=== PATIENT | male | born 1945 | race African-American/Black ===

== ENCOUNTER 2020-01-27 11:58 | Inpatient (IN) | payer MEDICARE, OTHER ==
[~2020-01-27] VITALS: Ht 172.7 cm; Wt 61.1 kg
[2020-01-27] MEDS ORDERED: SODIUM CHLORIDE 0.9% 1,000 ML IVB ONE (13:35)
[2020-01-27] MEDS ORDERED: ONDANSETRON HCL 4 MG/2 ML VIAL IV ONE (14:00)
[2020-01-27] MEDS ORDERED: MORPHINE SULF INJ 2 MG/ML SYRINGE 1ML IV ONE (14:00)
[2020-01-27 14:14] LABS: Basophils # (auto) 0 10 ^3/uL (0-0.2); Basophils % (auto) 0.3 % (0.0-2.0); Eosinophils # (auto) 0 10 ^3/uL (0-0.8); Hematocrit 41.9 % (41.0-53.0); Hemoglobin 14.5 g/dL (13.5-17.5); Lymphocytes # (auto) 0.5 10 ^3/uL (0.4-5.4); Lymphocytes % (auto) 4.8 % (10.0-50.0); Mean Corpuscular Hemoglobin 30.4 pg (28.0-32.0); Mean Corpuscular Hgb Conc. 34.5 g/dL (32.0-36.0); Mean Corpuscular Volume 88.2 fL (80.0-100.0); Monocytes # (auto) 0.4 10 ^3/uL (0-1.3); Monocytes % (auto) 4.7 % (0.0-12.0); Neutrophils # (auto) 8.6 10 ^3/uL (1.6-8.6); Neutrophils % (auto) 90.2 % (37.0-80.0); Nucleated Red Blood Cells % 0.1 %; Platelet Count (auto) 323 10^3/uL (140-450); Red Blood Cells 4.75 10^6/uL (4.5-5.90); White Blood Cell 9.5 10^3/uL (4.4-10.8)
[2020-01-27 14:32] LABS: INR 1.02 (0.9-1.15); Partial Thromboplastin Time 25.6 sec (23.64-32.05)
[2020-01-27] MEDS ORDERED: ACETAMINOPHEN 500 MG TAB PO PRN (16:30)
[2020-01-27] MEDS ORDERED: DEXTROSE (50%) 50ML SYRG IV PRN (16:30)
[2020-01-27] MEDS ORDERED: LACTULOSE 20Gm/30ML SOLN PO PRN (16:30)
[2020-01-27] MEDS ORDERED: PROMETHAZINE HCL 25 MG/ML 1ML IV PRN (16:30)
[2020-01-27] MEDS: MORPHINE SULF INJ 2 MG/ML SYRINGE 1ML IV PRN ×2 (18:58→22:50)
[2020-01-27] MEDS: SODIUM CHLORIDE 0.9% 1,000 ML IV SCH ×2 (19:00→23:32)
[2020-01-27] MEDS: ACCU-CHEK COMFORT CURVE STRIP VI SCH ×3 (19:02→23:00)
[2020-01-27] MEDS: cloNIDine HCL 0.1 MG TAB PO PRN (20:38)
[2020-01-27 22:30] VITALS: BP 143/99
--- NOTE | 2020-01-27 22:30 | NUR ---
MS admit from ER BIB BLOOD admitted to tele/MS after SBAR received. Patient oriented to WYATT VALLEJO RN primary RN, unit, room, bed, and unit policies regarding patient care and visiting hours. Patient weighed by bedscale and encouraged to call if they need something. All questions and concerns addressed, patient verbalized understanding. Note:
[2020-01-27 22:38] LABS: Albumin 3.4 g/dL (3.4-5.0); BUN/Creatinine Ratio 10.8; Calcium 8.3 mg/dL (8.5-10.1); Potassium 4.5 mmol/L (3.5-5.1)
[2020-01-27 22:41] LABS: Bilirubin, Total 1.4 mg/dL (0.2-1.0); Total Protein 6.5 g/dL (6.4-8.2)
[2020-01-27 23:16] VITALS: BP 143/99
[2020-01-28] MEDS: MORPHINE SULF INJ 2 MG/ML SYRINGE 1ML IV PRN ×4 (04:01→17:34)
[2020-01-28 05:00] VITALS: BP 162/91
[2020-01-28] MEDS: cloNIDine HCL 0.1 MG TAB PO PRN ×2 (05:56→16:25)
--- NOTE | 2020-01-28 08:30 | NUR ---
Opening Shift Note Assumed care of patient, awake, alert, and oriented. No S/S of distress/SOB. Patient c/o pain to right hip 04/13, will medicate per MD orders. Bed in lowest/locked position, bed rails up x2, call light within reach. Instructed on POC and to call for assist PRN. Will continue to monitor for changes Q1hr and PRN.
[2020-01-28 08:41] VITALS: BP 127/71
--- NOTE | 2020-01-28 10:20 | NUR ---
LR INFORMED PATIENT OF MD REQUEST FOR LR CATHETER PLACEMENT. PATIENT STATED "I DON'T WANT THAT." EDUCATED PATIENT, PATIENT VERBALIZED UNDERSTANDING. WILL CONTINUE TO MONITOR
--- NOTE | 2020-01-28 11:50 | NUR ---
MD ROUNDS DR Hima LEVINE AT BEDSIDE, DISCUSSING POC WITH PATIENT. NEW ORDERS RECEIVED/WILL CONTINUE TO MONITOR. WILL CONTINUE TO MONITOR
[2020-01-28] MEDS ORDERED: DEXTROSE (50%) 50ML SYRG IV PRN (12:15)
[2020-01-28] MEDS: ACCU-CHEK COMFORT CURVE STRIP VI SCH ×3 (12:19→20:56)
[2020-01-28] MEDS: SODIUM CHLORIDE 0.9% 1,000 ML IV SCH ×2 (12:20→18:20)
[2020-01-28 13:00] VITALS: BP 131/67
[2020-01-28] MEDS: LOSARTAN POTASSIUM 25 MG TAB PO SCH (13:22)
--- NOTE | 2020-01-28 15:22 | NUR ---
ROUNDS PATIENT ASLEEP, EVEN UNLABORED RESPIRATIONS. NO S/S OF DISTRESS, SOB, OR PAIN. WILL CONTINUE TO MONITOR
--- NOTE | 2020-01-28 15:45 | NUR ---
Two attempts made for PT eval today. During initial attempt, pt reported too much pain so I returned when pt was pre-medicated. He was initially agreeable to attempt sitting EOB. Pt attempted to move BLE but was having pain, I attempted to assist pt but he refused to let me touch him. I discussed at length the importance of mobility training with pt to allow for safe discharge home. pt verbalized understanding but stated, "I will go home tonight and then come back in the morning for rehab." I explained to pt that he could not go home without orders from the physician. Educated pt on adverse effects of bedrest. Will attempt PT eval again tomorrow.
[2020-01-28] MEDS: traMADol HCL 50 MG TAB PO PRN ×2 (16:26→20:50)
[2020-01-28 16:41] VITALS: BP 180/77
[2020-01-28] MEDS: InsuLIN REG 1unit/0.01ml Soln (100units/ml) SC SCH ×2 (17:36→20:56)
[2020-01-28] MEDS: METOPROLOL TARTRATE 50 MG TAB PO SCH (20:49)
[2020-01-28] MEDS: TEMAZEPAM 15 MG CAP PO PRN (20:50)
[2020-01-28 22:00] VITALS: BP 134/76
--- NOTE | 2020-01-29 03:48 | NUR ---
PATIENT REFUSED TO BE CLEANED WHEN OFFERED. REFUSED TO REPOSITION SIDE TO SIDE. EXPLAINED THE IMPORTANCE TO REPOSITION, OFFERED PAIN MEDICINE IF NEEDED BUT STARTED GETTING UPSET. WILL KEEP MONITORING.
[2020-01-29] MEDS: SODIUM CHLORIDE 0.9% 1,000 ML IV SCH ×3 (04:36→22:07)
[2020-01-29] MEDS: MORPHINE SULF INJ 2 MG/ML SYRINGE 1ML IV PRN ×3 (04:36→18:31)
[2020-01-29 05:45] VITALS: BP 137/76
[2020-01-29] MEDS: InsuLIN REG 1unit/0.01ml Soln (100units/ml) SC SCH ×4 (06:20→21:24)
[2020-01-29] MEDS: ACCU-CHEK COMFORT CURVE STRIP VI SCH ×4 (06:20→21:24)
[2020-01-29 09:00] VITALS: BP 154/68
[2020-01-29] MEDS: LOSARTAN POTASSIUM 25 MG TAB PO SCH (09:55)
[2020-01-29] MEDS: METOPROLOL TARTRATE 50 MG TAB PO SCH ×2 (09:56→22:07)
--- NOTE | 2020-01-29 10:15 | NUR ---
Up with PT Patient stood with physical therapist. Patient currently out of bed in chair.
--- NOTE | 2020-01-29 10:35 | NUR ---
at Bedside Dr. Pedro at bedside discussing plan of care with patient. Per MD, encourage patient to continue working with physical therapy and attempt to walk tomorrow. Per MD, will possibly arrange for social service consult for tomorrow.
--- NOTE | 2020-01-29 11:29 | NUR ---
Assessment Patient is a 74- year-old male who is alert and oriented. Prior to admission patient lived home with his and function with assistance. Per patient his helps him with his ADLs. Advised patient there is a social service consult for a walker. Per patient he has a walker for home use. Per patient he will return to his prior living arrangements post discharge and family will transport him home. Informed patient he has the right to participate in all discharge planning. Patient verbalized understanding and agreed to discharge plan. Addendum: 01/29/20 at 1130 by ARTI THOMPSON Amended: Links added.
[2020-01-29 13:00] VITALS: BP 125/58
[2020-01-29 17:00] VITALS: BP 170/88
[2020-01-29] MEDS: cloNIDine HCL 0.1 MG TAB PO PRN (17:30)
[2020-01-29 21:45] VITALS: BP 172/73
[2020-01-29] MEDS: traMADol HCL 50 MG TAB PO PRN (22:08)
[2020-01-29] MEDS: TEMAZEPAM 15 MG CAP PO PRN (22:08)
[2020-01-30 04:52] VITALS: BP 134/66
[2020-01-30] MEDS: InsuLIN REG 1unit/0.01ml Soln (100units/ml) SC SCH ×2 (06:11→12:06)
[2020-01-30] MEDS: ACCU-CHEK COMFORT CURVE STRIP VI SCH ×2 (06:11→12:05)
[2020-01-30] MEDS: MORPHINE SULF INJ 2 MG/ML SYRINGE 1ML IV PRN (06:23)
[2020-01-30 09:00] VITALS: BP 124/63
[2020-01-30] MEDS: traMADol HCL 50 MG TAB PO PRN (10:15)
[2020-01-30] MEDS: LOSARTAN POTASSIUM 25 MG TAB PO SCH (10:25)
[2020-01-30] MEDS: METOPROLOL TARTRATE 50 MG TAB PO SCH (10:25)
[2020-01-30 13:00] VITALS: BP 136/71
--- NOTE | 2020-01-30 14:05 | NUR ---
re-assessment Per consult [facility] for physical therapy. I informed patient he has a consult for home health. I offered patient a list of medicare providers. Patient informed me he wants the company Dr Pedro has suggested to him. order has been sent to [facility]. Per Vickey at [facility] service will start 01/31/2020. Addendum: 01/30/20 at 1408 by Jessica Krishnamurthy Amended: Links added.
[2020-01-30] MEDS: SODIUM CHLORIDE 0.9% 1,000 ML IV SCH (14:31)
--- NOTE | 2020-01-30 15:30 | NUR ---
Discharge Went over discharge paperwork with patient. Removed IV intact, no problems. Will go over paperwork again when spouse arrives. Prescriptions in bag with patient's personal belongings. Will give to . No telemetry - Med Surg patient. All of patient's clothes were cut open, contacted portable sawyer to find some in the donation room for patient to wear home. Notified of discharge, she said [place] and just got out of work and it will take 2 hours to get here to pick him up. Patient comfortably waiting in chair in room. Denies needing anything at this time. Will inform to call doctors to make appointments as instructed on discharge paperwork. Contact information for doctors was provided.
== END 2020-01-30 18:55 | disposition home health service (06) | DRG 536 ==
LOC: EDBD 11:58 → ER 11:58 → OVERFLOW 11:59 → WEST WING 22:09
PROVIDERS: ADMIT Internal Medicine; ATTEND Family Medicine
DX: S72.111A Displaced fracture of greater trochanter of right femur, initial encounter for closed fracture (principal); W01.0XXA Fall on same level from slipping, tripping and stumbling without subsequent striking against object, initial encounter; E11.65 Type 2 diabetes mellitus with hyperglycemia; I10 Essential (primary) hypertension; E11.51 Type 2 diabetes mellitus with diabetic peripheral angiopathy without gangrene; Z79.899 Other long term (current) drug therapy; Z82.49 Family history of ischemic heart disease and other diseases of the circulatory system; Z83.3 Family history of diabetes mellitus; Z86.73 Personal history of transient ischemic attack (TIA), and cerebral infarction without residual deficits; Y93.89 Activity, other specified; Y92.090 Kitchen in other non-institutional residence as the place of occurrence of the external cause; Y99.8 Other external cause status
CPT/HCPCS: 36415; 70450; 71045; 72192; 73502; 80053; 82962; 83036; 83735; 85025; 85610; 85730; 93306; 96361; 96374; 96375; 97116; 97163; 97530; G0378; J1815; J2405